=== PATIENT | female | born 1985 | race Two or more races ===

== ENCOUNTER 2016-11-27 19:30 | Emergency (ER) | payer OTHER ==
[~2016-11-27] VITALS: Ht 167.6 cm; Wt 84.4 kg
[2016-11-27 19:40] VITALS: BP 112/63
[2016-11-27] MEDS ORDERED: NAPROXEN 250 MG TABLET PO ONE (20:30)
[2016-11-27] MEDS ORDERED: NAPROXEN 250 MG TABLET ONE (20:30)
== END 2016-11-27 20:50 | disposition home or self-care (01) ==
LOC: ER 19:33
DX: R52 Pain, unspecified (principal); R11.0 Nausea
CPT/HCPCS: 99283; A4606; Z7610